=== PATIENT | male | born 1955 | race African-American/Black ===

== ENCOUNTER 2016-09-24 20:09 | Emergency (ER) | payer MEDICAID ==
--- NOTE | 2016-09-24 20:40 | EDM.PDOC ---
ED HPI GENERAL MEDICAL PROBLEM - General Chief Complaint: Cardiovascular Problem Stated Complaint: "fluttering heart" Time Seen by Provider: 09/24/16 20:25 Source of Information: Reports: Patient History Limitations: Reports: No Limitations - History of Present Illness INITIAL COMMENTS - FREE TEXT/NARRATIVE: states that he was laying on the couch and he started to have some fluttering in his chest and then he felt SOB with some cold sweats and nausea. Mays like this for about 30 minutes. He has been doctoring with Dr. Hogan for about 2 months with some SOB and was started on symbicort. Has had recent stress test which was normal. Have not found cause of SOB. Feels better now. No fluttering at this time. Denies having any actual chest pain with this. Onset: Sudden Location: Reports: Chest Associated Symptoms: Reports: Shortness of Breath. Denies: Chest Pain, Fever/ Chills - Related Data Allergies Allergy/AdvReac Type Severity Reaction Status Date / Time No Known Allergies Allergy Verified 09/24/16 20:12 Home Meds: Home Meds Aspirin 81 mg PO BRK 08/01/15 [History] Clopidogrel [Plavix] 75 mg PO DAILY 08/01/15 [History] Metoprolol Tartrate 25 mg PO BID 08/01/15 [History] amLODIPine [Norvasc] 10 mg PO DAILY 08/01/15 [History] atorvaSTATin [Lipitor] 40 mg PO DAILY 08/01/15 [History] Lisinopril 20 mg PO DAILY 08/20/16 [History] Nitroglycerin 0.4 mg PO ASDIRECTED PRN 08/20/16 [History] buPROPion HCl [buPROPion SR] 100 mg PO BID 08/20/16 [History] Past Medical History Cardiovascular History: Reports: Hypertension, [place], Stents Respiratory History: Reports: Asthma - Past Surgical History Respiratory Surgical History: Reports: None Social & Family History - Family History Family Medical History: Noncontributory - Tobacco Use Smoking Status *Q: Current Every Day Smoker Years of Tobacco use: 30 Packs/Tins Daily: 1 - Recreational Drug Use Recreational Drug Use: Yes Recreational Drug Type: Reports: Marijuana/Hashish ED ROS GENERAL - Review of Systems Review Of Systems: See Below Constitutional: Denies: Fever, Chills HEENT: Reports: No Symptoms Respiratory: Reports: Shortness of Breath. Denies: Cough Cardiovascular: Denies: Chest Pain, Edema GI/Abdominal: Denies: Abdominal Pain, Diarrhea, Nausea : Denies: Dysuria Musculoskeletal: Reports: No Symptoms Skin: Denies: Rash Neurological: Reports: No Symptoms ED EXAM, GENERAL - Physical Exam Exam: See Below Exam Limited By: No Limitations General Appearance: Alert, No Apparent Distress Ears: Normal External Exam, Normal Canal, Normal TMs Nose: Normal Inspection Throat/Mouth: Normal Inspection, Normal Oropharynx, No Airway Compromise Head: Atraumatic, Normocephalic Neck: Normal Inspection, Supple, Non-Tender, Full Range of Motion Respiratory/Chest: No Respiratory Distress, Lungs Clear, Normal Breath Sounds Cardiovascular: Normal Peripheral Pulses, Regular Rate, Rhythm, No Edema GI/Abdominal: Normal Bowel Sounds, Soft, Non-Tender, No Organomegaly Back Exam: Normal Inspection Extremities: Normal Inspection, Normal Range of Motion, No Pedal Edema Neurological: Alert, Oriented Skin Exam: Warm, Dry, Intact Course - Vital Signs Last Recorded V/S: Last Vital Signs Temp 97.8 F 09/24/16 20:10 Pulse 70 09/24/16 20:10 Resp 16 09/24/16 20:10 BP 154/97 H 09/24/16 20:43 Pulse Ox 94 L 09/24/16 20:10 - Orders/Labs/Meds Orders: Active Orders 24 hr Category Date Time Status EKG Documentation Completion [RC] STAT Care 09/24/16 20:12 Active Labs: Laboratory Tests 09/24/16 09/24/16 Range/Units 20:35 20:35 WBC 6.9 (5.0-10.0) 10^3/uL RBC 5.20 (4.50-6.00) 10^6/uL Hgb 14.9 (14.0-18.0) g/dL Hct 44.6 (40.0-54.0) % MCV 85.8 (82.0-94.0) fL MCH 28.7 (27.0-32.0) pg MCHC 33.4 (33.0-38.0) g/dL RDW Coeff of [place] 14.0 (11.0-15.0) % Plt Count 205 (150-400) 10^3/uL Neut % (Auto) 56.6 (35-85) % Lymph % (Auto) 30.1 (10-55) % [place] % (Auto) 8.7 (0-16) % Eos % (Auto) 4.3 (0-5) % Baso % (Auto) 0.3 (0-3) % Neut # (Auto) 3.90 (1.80-7.00) 10^3/uL Lymph # (Auto) 2.08 (1.00-4.80) 10^3/uL [place] # (Auto) 0.60 (0.00-0.80) 10^3/uL Eos # (Auto) 0.30 (0.00-0.45) 10^3/uL Baso # (Auto) 0.02 10^3/uL Sodium 137 (136-145) mEq/L Potassium 4.0 (3.5-5.0) mEq/L Chloride 103 (98-106) mEq/L Carbon Dioxide 27 (21-32) mmol/L BUN 15 (7-18) mg/dL Creatinine 1.0 (0.7-1.3) mg/dL Est Cr Clr Drug Dosing 79.08 mL/min Estimated GFR (MDRD) > 60 (>=60) mL/min Glucose 98 (75-99) mg/dL Calcium 8.8 (8.4-10.1) mg/dL Lactate Dehydrogenase 135 (100-190) U/L Creatine Kinase 115 (35-232) U/L Troponin I < 0.017 (0.00-0.06) ng/mL - Re-Assessments/Exams Free Text/Narrative Re-Assessment/Exam: 09/24/16 21:09 in to discuss lab results that are all normal. Departure - Departure Time of Disposition: 21:09 Disposition: Home, Self-Care 01 Condition: Good Clinical Impression: Palpitations Referrals: Stephen Hogan MD [Primary Care Provider] - Forms: ED Department Discharge Additional Instructions: continue on same meds If palpitations reoccur then return to see Call if any new concerns noted. - My Orders Last 24 Hours: My Active Orders 09/24/16 20:12 EKG Documentation Completion [RC] STAT - Assessment/Plan Last 24 Hours: My Active Orders 09/24/16 20:12 EKG Documentation Completion [RC] STAT
[2016-09-24 20:44] VITALS: BP 154/97
[2016-09-24 21:01] LABS: CHLORIDE,CL 103 mEq/L (98-106); SODIUM,NA 137 mEq/L (136-145)
== END 2016-09-24 21:17 | disposition home or self-care (01) ==
LOC: CC.ED 20:09
DX: R00.2 Palpitations (principal); I10 Essential (primary) hypertension; I25.2 Old myocardial infarction; J45.909 Unspecified asthma, uncomplicated; F17.210 Nicotine dependence, cigarettes, uncomplicated; Z95.5 Presence of coronary angioplasty implant and graft; Z79.82 Long term (current) use of aspirin; Z79.02 Long term (current) use of antithrombotics/antiplatelets; Z79.899 Other long term (current) drug therapy
CPT/HCPCS: 36415; 80048; 82550; 83615; 84484; 85025; 93005; 99285

== ENCOUNTER 2016-12-01 02:43 | Emergency (ER) | payer MEDICAID ==
[2016-12-01 02:48] VITALS: BP 135/83
--- NOTE | 2016-12-01 03:23 | EDM.PDOC ---
ED HPI GENERAL MEDICAL PROBLEM - General Chief Complaint: Lower Extremity Injury/Pain Stated Complaint: L)KNEE HURTS Time Seen by Provider: 12/01/16 03:04 Source of Information: Reports: Patient History Limitations: Reports: No Limitations - History of Present Illness INITIAL COMMENTS - FREE TEXT/NARRATIVE: states that he woke up today and his left knee was swollen and stiff. Denies any injury to it. 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 Has taken 2 ASA for it but nothing else. Denies any trauma to the area. No falls. Has been walking on it. No numbness or tingling noted. Onset: Gradual Location: Reports: Lower Extremity, Left Quality: Reports: Ache Severity: Mild Left Knee Pain Score (Numeric/FACES): 6 - Related Data Allergies Allergy/AdvReac Type Severity Reaction Status Date / Time No Known Allergies Allergy Verified 12/01/16 03:05 Home Meds: Home Meds Aspirin 81 mg PO BRK 08/01/15 [History] Clopidogrel [Plavix] 75 mg PO DAILY 08/01/15 [History] Metoprolol Tartrate 25 mg PO BID 08/01/15 [History] amLODIPine [Norvasc] 10 mg PO DAILY 08/01/15 [History] atorvaSTATin [Lipitor] 40 mg PO DAILY 08/01/15 [History] Lisinopril 20 mg PO DAILY 08/20/16 [History] Nitroglycerin 0.4 mg PO ASDIRECTED PRN 08/20/16 [History] buPROPion HCl [buPROPion SR] 100 mg PO BID 08/20/16 [History] Past Medical History Cardiovascular History: Reports: Hypertension, [place], Stents Respiratory History: Reports: Asthma - Past Surgical History Respiratory Surgical History: Reports: None Social & Family History - Family History Family Medical History: Noncontributory - Tobacco Use Smoking Status *Q: Current Every Day Smoker Years of Tobacco use: 50 Packs/Tins Daily: 1 - Caffeine Use Caffeine Use: Reports: None - Recreational Drug Use Recreational Drug Use: No Recreational Drug Type: Reports: Marijuana/Hashish Review of Systems - Review of Systems Review Of Systems: See Below Constitutional: Reports: No Symptoms Musculoskeletal: Reports: Leg Pain, Joint Pain Skin: Denies: Erythema, Wound ED EXAM, GENERAL - Physical Exam Exam: See Below Exam Limited By: No Limitations General Appearance: Alert, Mild Distress Peripheral Pulses: 3+: Popliteal (L), Posterior Tibial (L), Dorsalis Pedis (L) Extremities: Normal Inspection, Normal Range of Motion, No Pedal Edema, Other ( minimal swelling noted to the left knee. Able to go through ROM. Does cause some increase in discomfort with flexion of the knee past 90 degrees. Good pulses distally. No swelling distally. Good senstion noted distally.) Neurological: Alert Skin Exam: Warm, Dry, Intact Course - Vital Signs Last Recorded V/S: Last Vital Signs Temp 98.4 F 12/01/16 02:44 Pulse 78 12/01/16 02:44 Resp 20 12/01/16 02:44 BP 135/83 12/01/16 02:44 Pulse Ox 97 12/01/16 02:44 Departure - Departure Time of Disposition: 03:20 Disposition: Home, Self-Care 01 Condition: Good Clinical Impression: Sprain of knee - Discharge Information Instructions: Knee Sprain, [id number] Referrals: Stephen Hogan MD [Primary Care Provider] - Forms: ED Department Discharge Additional Instructions: ICE knee elevate if swelling present Alternate tylenol and advil every 2 hours for the discomfort If pain and swelling continues then see primary care provider in the clinic - Problem List & Annotations (1) Sprain of knee SNOMED Code(s): 72872281 Code(s): S83.90XA - SPRAIN OF UNSPECIFIED SITE OF UNSPECIFIED KNEE, INIT ENCNTR Status: Acute Priority: High Current Visit: Yes - Problem List Review Problem List Initiated/Reviewed/Updated: Yes
== END 2016-12-01 03:35 | disposition home or self-care (01) ==
LOC: CC.ED 02:43
DX: S83.8X2A Sprain of other specified parts of left knee, initial encounter (principal); I10 Essential (primary) hypertension; I25.2 Old myocardial infarction; J45.909 Unspecified asthma, uncomplicated; F17.210 Nicotine dependence, cigarettes, uncomplicated; Z79.82 Long term (current) use of aspirin; Z79.899 Other long term (current) drug therapy; Z95.5 Presence of coronary angioplasty implant and graft; Z79.02 Long term (current) use of antithrombotics/antiplatelets; X58.XXXA Exposure to other specified factors, initial encounter
CPT/HCPCS: 99283

== ENCOUNTER → 2017-07-23 | Day surgery (SDC) | payer MEDICAID ==
[~2017-07-23] MED LIST: Lactated Ringers 1,000 ML IV SCH; Propofol 200 MG/20 ML SDV IV ONE
[2017-07-23 09:18] VITALS: BP 137/78
--- NOTE | 2017-07-26 08:35 | OR ---
DATE OF OPERATION: 07/23/2017 PREOPERATIVE DIAGNOSIS: OBSTIPATION. POSTOPERATIVE DIAGNOSIS: OBSTIPATION. SURGEON: Stephen Hogan MD PROCEDURE: FULL-LENGTH COLONOSCOPY WITH POLYP REMOVAL X3. ANESTHESIA: [employer] due to COPD. COMPLICATIONS: None. SPECIMEN: 1. Hyperplastic polyps x2. 2. Large tubulovillous adenoma in rectosigmoid junction. RECOMMENDATIONS: Follow up colonoscopy in 1 year given the size of the polyp. INDICATIONS: The patient has never had a prior colonoscopy, came in with 2 months of constipation. We elected to proceed with scope. DESCRIPTION OF PROCEDURE: The patient was prepped and draped, placed in the left lateral decubitus position. A lubricated Olympus colonoscope was inserted and easily advanced to the cecum. Direct visualization of the ileocecal valve and appendiceal orifice was accomplished. Bowel prep was adequate. Upon withdrawal, the cecum, ascending, and transverse colon essentially benign. The patient did have 1 small hyperplastic polyp in the right colon, which was removed with a forceps biopsy x2. The descending colon was unremarkable. Throughout the sigmoid colon, the patient had no significant signs of any diverticular disease. There were no worrisome vascular abnormalities or signs of colitis. No obstructive lesions were found throughout the length of the colon. In the rectosigmoid junction, the patient had a large tubulovillous adenoma, reasonably well stalked, removed with a small snare, had to be pulled out through the rectum due to its size and this measured approximately 1.75 to 2 cm. There was another small hyperplastic polyp and a partial removal with forceps was accomplished for confirmation. The rest of the rectal vault was benign. Retroflexion showed no perianal lesions. Air was suctioned. Scope was removed without complication. AMELIA/ADIA /[id number]
== END ==
LOC: CC.SDS 06:58
PROVIDERS: ATTEND Family Medicine
DX: K59.00 Constipation, unspecified (principal); R19.8 Other specified symptoms and signs involving the digestive system and abdomen; D12.0 Benign neoplasm of cecum; D12.7 Benign neoplasm of rectosigmoid junction; I25.119 Atherosclerotic heart disease of native coronary artery with unspecified angina pectoris; J44.9 Chronic obstructive pulmonary disease, unspecified; F17.210 Nicotine dependence, cigarettes, uncomplicated; Z79.02 Long term (current) use of antithrombotics/antiplatelets; Z79.82 Long term (current) use of aspirin; Z79.899 Other long term (current) drug therapy
CPT/HCPCS: J2704; J7120

== ENCOUNTER → 2018-07-08 | Day surgery (SDC) | payer MEDICAID ==
[2018-07-08 09:16] VITALS: BP 180/97
--- NOTE | 2018-07-08 14:30 | OR ---
DATE OF OPERATION: 07/08/2018 PREOPERATIVE DIAGNOSIS: FOLLOWUP LARGE TUBULOVILLOUS POLYPS. POSTOPERATIVE DIAGNOSIS: FOLLOWUP LARGE TUBULOVILLOUS POLYPS. SURGEON: Stephen Hogan MD PROCEDURE: COLONOSCOPY WITH SNARE POLYPECTOMY X2. ANESTHESIA: MAC via FORESTRY AID. COMPLICATIONS: None. SPECIMEN: Two small sessile polyps, splenic flexure. FINDINGS: 1. Full-length colonoscopy. 2. No recurrence at rectosigmoid junction of tubulovillous lesion. 3. Two small sessile polyps, approximately 3 to 4 mm, splenic flexure. RECOMMENDATIONS: Followup colonoscopy in 3 years. INDICATIONS: The patient a year ago had a large tubulovillous polyp removed from the rectosigmoid junction. We recommended a 1-year followup endoscopy. DESCRIPTION OF PROCEDURE: The patient was prepped and draped, placed in the left lateral decubitus position. A lubricated Olympus colonoscope was inserted and easily advanced to the cecum. Direct visualization of the ileocecal valve and appendiceal orifice was accomplished. The bowel prep was adequate. Upon withdrawal of the scope, the cecum, ascending, transverse colon were benign. Just on the descending colon side of the splenic flexure, patient had 2 small sessile polyps, flat, about 3 to 4 mm, each removed with snare without problem, both suctioned into polyp trap #1. The rest of the descending and sigmoid colon were unremarkable. Thorough evaluation of the rectosigmoid junction at the patient's prior polyp removal site was benign. The rectal vault was unremarkable. Retroflexion showed no perianal lesions. Air was suctioned, scope removed without complication. AMELIA/ADIA /[id number]
== END ==
LOC: CC.SDS 07:26
PROVIDERS: ATTEND Family Medicine
DX: D12.3 Benign neoplasm of transverse colon (principal); I10 Essential (primary) hypertension; E78.00 Pure hypercholesterolemia, unspecified; K21.9 Gastro-esophageal reflux disease without esophagitis; J44.9 Chronic obstructive pulmonary disease, unspecified; F17.210 Nicotine dependence, cigarettes, uncomplicated; Z95.5 Presence of coronary angioplasty implant and graft; Z86.010 Personal history of colon polyps; Z79.82 Long term (current) use of aspirin; Z79.899 Other long term (current) drug therapy
CPT/HCPCS: 45385; J2704; J7120

== ENCOUNTER → 2021-05-23 | Day surgery (SDC) | payer MEDICARE ==
[~2021-05-23] MED LIST changes: +Ketamine 200 MG/20 ML MDV ONE; +Phenylephrine 1% 10 MG/ML SDV ONE; -Propofol 200 MG/20 ML SDV IV ONE; +Propofol 200 MG/20 ML SDV ONE; +fentaNYL 100 MCG/2 ML SDV ONE
[2021-05-23 13:16] VITALS: BP 151/95; PULSE 68
== END ==
LOC: CC.SDS 09:43
PROVIDERS: ATTEND Family Medicine
DX: Z12.11 Encounter for screening for malignant neoplasm of colon (principal); D12.7 Benign neoplasm of rectosigmoid junction; N40.0 Benign prostatic hyperplasia without lower urinary tract symptoms; J44.9 Chronic obstructive pulmonary disease, unspecified; F32.A Depression, unspecified; I10 Essential (primary) hypertension; E78.00 Pure hypercholesterolemia, unspecified; F17.200 Nicotine dependence, unspecified, uncomplicated; Z79.82 Long term (current) use of aspirin; Z95.5 Presence of coronary angioplasty implant and graft; Z79.899 Other long term (current) drug therapy
CPT/HCPCS: J2370; J2704; J3010; J7120